=== PATIENT | male | born 1970 | race Caucasian/White ===

== ENCOUNTER → 2016-08-31 | Outpatient (CLI) | payer OTHER ==
--- NOTE | 2016-08-31 18:46 | MRI ---
Indication: Epilepsy and seizures Exam: MRI brain with and without contrast. Technique Routine multiplanar multisequence imaging was performed through the brain before and after administration of contrast without complication . Findings: The ventricles are normal. There is no abnormal signal on the diffusion-weighted data set which would suggest any type of acute ischemia. The midline structures are unremarkable. There are n o abnormal areas of increased or decreased signal intensity in the brain. No enhancing lesion or mas s is seen. The vascular structures are unremarkable. The temporal lobes are symmetric and normal sig nal intensity. The parahippocampal regions are symmetric and unremarkable in appearance. The 7th and 8th nerve complexes are symmetric and normal size and signal intensity. No extra-axial fluid collec tion or mass is seen. No intracranial hemorrhage or edema is seen. Impression: No abnormality seen Reported By:
== END ==
LOC: RAD 15:24
PROVIDERS: ATTEND Psychiatry & Neurology Neurology
DX: G40.909 Epilepsy, unspecified, not intractable, without status epilepticus (principal)
CPT/HCPCS: 70553